=== PATIENT | male | born 1945 | race Caucasian/White ===

== ENCOUNTER 2016-10-12 12:26 | Emergency (ER) | payer OTHER ==
[2016-10-12 12:42] LABS: BASOPHILS 0.4 % (0.0-2.0); EOSINOPHILS 3.3 % (0.0-6.0); EOSINOPHILS# 0.2 X 10^3uL (0.0-0.4); HEMATOCRIT 44.3 % (42.0-54.0); HEMOGLOBIN 14.9 g/dL (14.0-18.0); LYMPHOCYTES 26.6 % (20.0-40.0); MEAN CELL VOLUME 93.4 fL (80.0-100.0); MEAN CORPUS. HGB CONCENTRATION 33.7 g/dL (32.0-36.0); MEAN CORPUSCULAR HEMOGLOBIN 31.5 pg (29.0-35.0); MEAN PLATELET VOLUME 7.1 fL (7.4-10.4); MONOCYTES 7.8 % (2.0-10.0); MONOCYTES# 0.6 X 10^3uL (0.2-1.0); NEUTROPHILS 61.9 % (54.0-75.0); NEUTROPHILS# 4.6 X 10^3uL (2.6-6.7); PLATELET COUNT 299 X 10^3uL (130-440); RED BLOOD COUNT 4.75 X 10^6uL (4.20-6.10); RED CELL DISTRIBUTION WIDTH 12.9 % (11.5-14.5); WHITE BLOOD COUNT 7.4 X 10^3uL (3.9-10.7)
[2016-10-12 13:01] LABS: A/G RATIO 1.2; ALBUMIN 4.3 g/dL (3.5-5.0); ALKALINE PHOSPHATASE 73 U/L (38-126); ALT 29 U/L (21-72); AST 33 U/L (17-59); BILIRUBIN, TOTAL 0.7 mg/dL (0.2-1.3); BLOOD UREA NITROGEN 20 mg/dL (9-20); CALCIUM 9.6 mg/dL (8.4-10.2); CHLORIDE 105 mmol/L (98-107); EST GLOMERULAR FILTRATION RATE > 60 mL/min; GLUCOSE 154 mg/dL (70-100); POTASSIUM 3.8 mmol/L (3.5-5.1); SODIUM 141 mmol/L (137-145); TOTAL PROTEIN 7.8 g/dL (6.3-8.2)
--- NOTE | 2016-10-12 13:01 | CT REPORT ---
HISTORY: Fall, left frontal laceration. Occipital pain. Nausea and vomiting. COMPARISON: None. TECHNIQUE: This examination was performed using automated exposure control, adjustment of mA or kV according to patient size, and/or use of iterative reconstruction technique. Axial thin section images obtained f rom skull base through head of the clavicles. Sagittal and coronal reformat images obtained. FINDINGS: Straightening of normal cervical lordosis likely positional. Multilevel degenerative disc height loss and endplate marginal osteophyte formation. Probable degenerative autofusion across the right C3-4 a nd left C4-5 facet joints. At least mild spinal canal stenosis at C5-6 due to disc osteophyte complex formation. Severe bilateral foraminal stenosis at C5-6. Bilateral carotid bulb atherosclerotic change is noted. IMPRESSION: 1. No evidence of cervical spine fracture. 2. Multilevel cervical spondylosis. Final Electronic Signature: This report was electronically signed by Maurice Costello MD on 10/12/2016 12:59 PM. [email or web address] /
--- NOTE | 2016-10-12 13:05 | CT REPORT ---
HISTORY: Trauma. COMPARISON: None. TECHNIQUE: Dose reduction technique was utilized. Axial non-contrasted images obtained from skull vertex throug h foramen magnum. Coronal reconstructions. FINDINGS: Large amount of acute intracranial hemorrhage fills the basilar cisterns and extends into the frontal sulci and interhemispheric fissure region. Blood also fills the prepontine cistern and sylvian fissu re. Age-appropriate cerebral atrophy. No acute intracranial infarction. Calvarium is intact. Critical results were communicated with Peter Beltre at 10/12/2016 12:58 PM. IMPRESSION: Large amount of aneurysmal pattern acute subarachnoid space hemorrhage. Recommend intracranial CT an giogram for further evaluation. Final Electronic Signature: This report was electronically signed by Damien Wheatley MD on 10/12/2016 1: 03 PM. elizabeth /
[2016-10-12] MEDS ORDERED: ONDANSETRON ODT 4 MG TAB.RAPDIS ONE (13:09)
[2016-10-12] MEDS ORDERED: ONDANSETRON HCL 4 MG/2 ML VIAL ONE (13:10)
[2016-10-12] MEDS ORDERED: FENTANYL 100 MCG/2 ML VIAL ONE (13:28)
--- NOTE | 2016-10-12 14:19 | ER PHYSICIAN DOCUMENTATION ---
Physician Documentation [facility] Name:Romie Andre Age:71 yrs Sex:Male :1945 Arrival Date:10/12/2016 Time:12:26 BedTrauma-A Private MD: Steven Wyman Disposition: 10/14 04:36 Chart complete. tl1 Disposition: 10/12/16 13:42 Transfer ordered to Other Acute Care Facility. Diagnosis is Subarachnoid Hemorrhage. - Reason for transfer: Higher level of care. - Accepting physician is Kd Naidu. - Condition is Serious. - Problem is new. - Symptoms are unchanged. COBRA Form completed? Yes Transfer - Mode of Transportation Helicopter HPI: 10/12 12:30 This 71 yrs old Male presents to ER via EMS with complaints of Fall Injury. tl1 12:30 Details of fall: The patient fell from a height. Onset: The symptom(s)/episode tl1 began/occurred just prior to arrival. While walking from his car to where he was going to put on his skis, he became lightheaded. After sitting down to put them on he apparently lost consciousness and fel down a snow slopel about 40-50 feet landing on some rocks with possible LOC. He was rescued by EMS and transported here for evaluation. He complained of a h/a. He has had "sinus" headaches (diagnosed by his -a non-medical type) for the last several weeks. Exact details about those headaches are murky. He currently denies visual problems, focal weakness.. Historical: - Allergies: No known drug Allergies; - Home Meds: 1. amlodipine oral 2. thyroxine 3. Aspirin Oral - PMHx: Hypertension; THYROID PROBLEM; - PSHx: bilateral shoulders; KNEE SURGERY; - Tetanus: < 10 years < 10 years. - Ebola Screening: : No symptoms or risks identified at this time. . - Immunization history: Pneumococcal vaccine is up to date. - Social history: Smoking status: unknown if patient ever smoked tobacco. Patient uses alcohol on a daily basis. ROS: 12:40 MS/extremity: Negative for acute changes. tl1 12:40 Skin: Positive for abrasion(s). 12:40 Neuro: Positive for headache. 12:40 All other systems are negative. Exam: 12:40 Constitutional: The patient appears alert, awake, well developed, well hydrated, well tl1 groomed, well nourished, in obvious distress, mildly distressed, uncomfortable. 12:40 Head/face: Noted is no obvious of injury or deformity except abrasion(s), that are mild, of the forehead. 12:40 Eyes: Periorbital structures: appear normal, Pupils: equal, round, and reactive to light and accomodation, Extraocular movements: intact throughout, Conjunctiva: normal. 12:40 ENT: Exam is negative for acute changes. 12:40 Neck: External neck: is normal, C-spine: vertebral tenderness, is not appreciated. 12:40 Chest/axilla: Palpation: tenderness, is not appreciated. 12:40 Cardiovascular: Rate: normal, Rhythm: regular, Heart sounds: normal. 12:40 Respiratory: Respirations: normal, no acute changes, Breath sounds: are normal. 12:40 Abdomen/GI: Inspection: abdomen appears normal, Palpation: abdomen is soft and non-tender. 12:40 Back: pain, is absent, CVA tenderness, is absent, vertebral tenderness, is not appreciated. 12:40 Musculoskeletal/extremity: Exam is negative for acute changes. 12:40 Neuro: Orientation: is normal, Mentation: is normal, Memory: is normal, Cranial nerves: grossly normal, Motor: moves all fours, strength is 5/5 in the right hand, left hand, right foot and left foot, Gait: not tested. Deep tendon reflexes are 2+ (normal) in the right brachioradialis, right patellar, left brachioradialis and left patellar. Vital Signs: 12:34 BP 130 / 73; Pulse 67; Resp 16; Temp 97.7(O); Pulse Ox 93% on R/A; Weight 90.72 kg (R); arc Height 5 ft. 10 in. (177.80 cm) (R); Pain 9/10; 13:00 BP 118 / 68; Pulse 73; nf 13:30 BP 128 / 71; Pulse 79; Pulse Ox 98% on R/A; nf 14:20 BP 119 / 60; Pulse 67; Resp 12; Temp 97.3; Pulse Ox 97% ; Pain 5/10; nf 12:34 Body Mass Index 28.70 (90.72 kg, 177.80 cm) arc Trauma Score (Adult): 12:30 Eye Response: spontaneous(1); Verbal Response: oriented(1); Motor Response: obeys nf commands(2); Systolic BP: > 89 mm Hg(4); Respiratory Rate: 10 to 29 per min(4); Laurie Score: 15; Trauma Score: 12 13:30 Eye Response: spontaneous(1); Verbal Response: oriented(1); Motor Response: obeys nf commands(2); Systolic BP: > 89 mm Hg(4); Respiratory Rate: 10 to 29 per min(4); Laurie Score: 15; Trauma Score: 12 14:20 Eye Response: spontaneous(1); Verbal Response: oriented(1); Motor Response: obeys nf commands(2); Systolic BP: > 89 mm Hg(4); Respiratory Rate: 10 to 29 per min(4); [place] Score: 15; Trauma Score: 12 MDM: 12:33 Patient medically screened. tl1 13:30 Physician consultation: Kd Mary Aliceelvis was called at 13:30, was contacted at 13:35, tl1 regarding admission, patient's condition, and will see patient in ICU at [facility]. later today, after a discussion of the case, a recommendation for transfer for higher level of care is made. Special discussion: Need for specialized care at tertiary care hospital. ED course: Stable. Some relief of his pain with dilaudid. 14:00 Data reviewed: vital signs, nurses notes, lab test result(s), radiologic studies, CT tl1 scan. Data reviewed: and as a result, I will discharge patient. Data interpreted: monitor and storage bin tender: Pulse oximetry:. Counseling: I had a detailed discussion with the patient and/or guardian regarding: the historical points, exam findings, and any diagnostic results supporting the discharge/admit diagnosis, lab results, radiology results, the need to transfer to another facility, [facility] does not immediately have the required specialist. Medication response: The patient's symptoms have improved. Response to treatment: the patient's symptoms have mildly improved after treatment. 10/12 12:44 Order name: CBC AUTO DIF, MDIF/RMOR IF IND; Complete Time: 04:39 EDMS 10/14 04:37 Interpretation: Normal: WHITE BLOOD COUNT 7.4; HEMOGLOBIN 14.9; HEMATOCRIT 44.3; tl1 PLATELET COUNT 299. 10/12 13:03 Order name: COMPREHENSIVE METABOLIC PANEL; Complete Time: 04:39 EDMS 10/14 04:37 Interpretation: Normal: SODIUM 141; POTASSIUM 3.8; CHLORIDE 105; CARBON DIOXIDE 24; tl1 GLUCOSE 154; BLOOD UREA NITROGEN 20; CREATININE 1.1. 10/12 13:02 Order name: CAT SCAN; CERVICAL [id number]; Complete Time: 04:39 EDMS 10/14 04:38 Interpretation: see radiologist note. no fracture. tl1 10/12 13:05 Order name: CAT SCAN; HEAD W/O CON [id number]; Complete Time: 04:39 EDMS 10/14 04:39 Interpretation: SAH. see radiologist note. tl1 10/12 13:32 Order name: Oxygen; Complete Time: 13:32 nf Dispensed Medications: 12:57 Drug: Zofran 8 mg; Route: IVP; Infused Over: 2 mins; Site: right antecubital; nf 13:37 Follow up: Response: Nausea is decreased nf 13:18 Drug: fentaNYL (PF) 100 mcg; Route: IVP; Infused Over: 3 mins; Site: right antecubital; nf 13:37 Follow up: Response: Pain is decreased nf 13:46 Drug: compazine 5 mg; Route: IV; Rate: per protocol; Site: right antecubital; nf 13:56 Follow up: Response: Nausea is decreased nf 13:55 Drug: Dilaudid 0.5 mg; Route: IVP; Site: right antecubital; nf 14:17 Follow up: Response: Pain is decreased nf 14:10 Drug: compazine 5 mg; Route: IV; Rate: per protocol; Site: left antecubital; nf Signatures: Mary Jo Campbell RN RN Steven Espinoza MD MD tl1
--- NOTE | 2016-10-12 14:19 | ER NURSING DOCUMENTATION ---
Nurse's Notes [facility] Name:Romie Andre Age:71 yrs Sex:Male :1945 Arrival Date:10/12/2016 Time:12:26 BedTrauma-A Private MD: Diagnosis:Subarachnoid Hemorrhage Presentation: 10/12 12:27 Trauma event details: Injury occurred in the [facility]. nf 12:27 Transition of care: patient was not received from another setting of care. nf 12:33 Acuity: MICHELLE 2 rh 12:36 Method Of Arrival: EMS: 410 nf 12:37 Presenting complaint: EMS states: arrived in ER @1227 with trauma team present; patient nf was at top of [address] preparing to ski when he had a syncopal episode, fell down 40-50 feet of "steep" tundra, landed face down in snow, patient cannot recall syncopal episode and up to 15 minutes after fall; escorted to road by hikers and intercepted by rangers, [facility] assumed care at [facility]; ambulance report states injuries are head and neck and contusions fall occurred around 1000. Care prior to arrival: Medication(s) given: Zofran 8mgODT Labs. Mechanism of Injury:. 13:21 Care prior to arrival: IV initiated. gauge and site 18# right AC IV Fluids given by EMS nf Other [id number]. Trauma Activation: Physician: ED Attending; Name: Patt; Notified At: 12:23; Arrived At: 12:23 Physician: ED RN; Name: Adrian; Notified At: 12:23; Arrived At: 12:23 Physician: Rad Services Tech; Name: Yahaira; Notified At: 12:23; Arrived At: 12:23 Physician: [employer]; Name: ; Notified At: 12:23; Arrived At: 00:00 Physician: RN (MS, OR, NLC); Name: Mauricio; Notified At: 12:23; Arrived At: 12:23 Historical: - Allergies: No known drug Allergies; - Home Meds: 1. amlodipine oral 2. thyroxine 3. Aspirin Oral - PMHx: Hypertension; THYROID PROBLEM; - PSHx: bilateral shoulders; KNEE SURGERY; - Tetanus: < 10 years < 10 years. - Ebola Screening: : No symptoms or risks identified at this time. . - Immunization history: Pneumococcal vaccine is up to date. - Social history: Smoking status: unknown if patient ever smoked tobacco. Patient uses alcohol on a daily basis. Screenin:30 Abuse screen: Denies threats or abuse. Nutritional screening: No deficits noted. nf Tuberculosis screening: No symptoms or risk factors identified. Fall risk At risk due to prior history of falls. 12:37 Infectious Disease Risk None. nf Primary Survey: 12:27 Airway: patent. Breathing/Chest: Respiratory pattern: regular, Respiratory effort: nf spontaneous, unlabored. Circulation: Skin color: pink, Skin temperature: warm, dry. Assessment: 12:27 General: Appears well nourished, well groomed, Behavior is flat. Pain: Complains of nf pain in generalized headache, and more severe in front. 12:57 Reassessment: patient returned from radiology; complains of chills and nausea. nf 13:11 Reassessment: CT results given to patient and at bedside by Olesya. nf Vital Signs: 12:34 BP 130 / 73; Pulse 67; Resp 16; Temp 97.7(O); Pulse Ox 93% on R/A; Weight 90.72 kg (R); arc Height 5 ft. 10 in. (177.80 cm) (R); Pain 9/10; 13:00 BP 118 / 68; Pulse 73; nf 13:30 BP 128 / 71; Pulse 79; Pulse Ox 98% on R/A; nf 14:20 BP 119 / 60; Pulse 67; Resp 12; Temp 97.3; Pulse Ox 97% ; Pain 5/10; nf 12:34 Body Mass Index 28.70 (90.72 kg, 177.80 cm) arc Trauma Score (Adult): 12:30 Eye Response: spontaneous(1); Verbal Response: oriented(1); Motor Response: obeys nf commands(2); Systolic BP: > 89 mm Hg(4); Respiratory Rate: 10 to 29 per min(4); [place] Score: 15; Trauma Score: 12 13:30 Eye Response: spontaneous(1); Verbal Response: oriented(1); Motor Response: obeys nf commands(2); Systolic BP: > 89 mm Hg(4); Respiratory Rate: 10 to 29 per min(4); Laurie Score: 15; Trauma Score: 12 14:20 Eye Response: spontaneous(1); Verbal Response: oriented(1); Motor Response: obeys nf commands(2); Systolic BP: > 89 mm Hg(4); Respiratory Rate: 10 to 29 per min(4); Laurie Score: 15; Trauma Score: 12 ED Course: 12:28 Patient arrived in ED. arc 12:30 Cardiac Monitoring On for Nurse Monitoring only. Pulse Ox - RN Monitoring Only NIBP On nf - RN Monitoring Only. Door closed. Noise minimized. Lights dimmed. Moved to private room. Verbal reassurance given. Warm blanket given. Pillow given. head elevated. Diet: Patient is NPO. Family accompanied patient. 12:33 Steven Beltre MD is Attending Physician. tl1 12:33 Triage completed. rh 12:34 Mary Jo Campbell, PATRICK is Primary Nurse. nf 12:35 Oxygen Oxygen administration via nasal cannula @ 2L/min. nf 12:[address] pm1 12:[address]. pm1 12:57 Thermoregulation: Giovanna blanket applied. nf 13:23 Inserted peripheral IV: 18 gauge in left antecubital area Missed attempts: 18 gauge in arc left antecubital area. 14:10 Valuables patient transferred wearing his shorts per his request, all other belongings nf given to his . Administered Medications: 12:57 Drug: Zofran 8 mg; Route: IVP; Infused Over: 2 mins; Site: right antecubital; nf 13:37 Follow up: Response: Nausea is decreased nf 13:18 Drug: fentaNYL (PF) 100 mcg; Route: IVP; Infused Over: 3 mins; Site: right antecubital; nf 13:37 Follow up: Response: Pain is decreased nf 13:46 Drug: compazine 5 mg; Route: IV; Rate: per protocol; Site: right antecubital; nf 13:56 Follow up: Response: Nausea is decreased nf 13:55 Drug: Dilaudid 0.5 mg; Route: IVP; Site: right antecubital; nf 14:17 Follow up: Response: Pain is decreased nf 14:10 Drug: compazine 5 mg; Route: IV; Rate: per protocol; Site: left antecubital; nf Intake: 14:18 PO: 0ml; IV: 1000ml; Total: 1000ml. nf 14:27 patient did not urinate while in the ER/ UA not run and [facility] aware to obtain urine for UA Output: 14:18 Urine: 0ml; Total: 0ml. nf 14:27 patient did not urinate while in the ER/ UA not run and [facility] aware to obtain urine for UA Outcome: 13:42 ER care complete, transfer ordered by tl1 13:43 Transferred: Facility Acceptance Time: October 12, 2016 at 13:43 nf 14:18 Patient left the ED. nf 14:18 Transferred: Patient will be transferred to: [facility] Patient's face sheet was nf faxed to accepting facility. Face Sheet included patient's name, address, age, gender, contact information and insurance information. Patient will be transported by: [facility]. Nurse and Physician Charting and Notes were sent to Accepting Facility. All tests and/or procedures with results, if applicable, were sent to accepting facility. 14:18 Condition: stable nf 14:18 Discharge Assessment: Patient awake, alert and oriented x 3. No cognitive and/or functional deficits noted. Patient verbalized understanding of disposition instructions. 14:18 Discharge instructions given to patient, family, Instructed on need for transfer Demonstrated understanding of 14:27 Transferred: Report called to: Octavio Monroy of neurosurgical ICU at [place] nf Signatures: Mary Jo Campbell RN RN Yahaira Grant pm1 Steven Beltre MD MD tl1 Jenny Sands [facility] Jaida Martínez
== END 2016-10-12 14:19 | disposition short-term general hospital (02) ==
LOC: ER 12:26
DX: R55 Syncope and collapse (principal); S06.5X9A Traumatic subdural hemorrhage with loss of consciousness of unspecified duration, initial encounter; S00.81XA Abrasion of other part of head, initial encounter; W17.81XA Fall down embankment (hill), initial encounter; Y92.838 Other recreation area as the place of occurrence of the external cause; Y93.01 Activity, walking, marching and hiking; I10 Essential (primary) hypertension; Z79.82 Long term (current) use of aspirin; Z79.899 Other long term (current) drug therapy; Z99.89 Dependence on other enabling machines and devices; Z74.3 Need for continuous supervision
CPT/HCPCS: 70450; 72125; 80053; 85025; 96374; 96375; 96376; 99285; A0420; A0425; A0429; G0390; J1170; J2405; J3010